=== PATIENT | male | born 1985 | race African-American/Black ===

== ENCOUNTER 2016-09-15 08:13 | Emergency (ER) | payer SELFPAY ==
[~2016-09-15] VITALS: Ht 177.8 cm; Wt 69.1 kg
[~2016-09-15 08:13] MED LIST: FLEXERIL10 MG PO; MOTRIN600 MG PO; MOTRIN800 MG PO; ULTRAM50 MG PO
[2016-09-15 08:16] VITALS: BP 148/74
== END 2016-09-15 08:59 | disposition home or self-care (01) ==
LOC: EME 08:13
DX: T16.2XXA Foreign body in left ear, initial encounter (principal)
CPT/HCPCS: 99281; 99284

== ENCOUNTER 2017-06-19 08:22 | Emergency (ER) | payer SELFPAY ==
[~2017-06-19] VITALS: Ht 180.3 cm; Wt 70.4 kg
[~2017-06-19 08:22] MED LIST changes: +NAPROXEN500 MG PO
[2017-06-19] MEDS ORDERED: FLEXERIL10 MG PO (09:34)
[2017-06-19] MEDS ORDERED: LIDODERM 5% P1 PATCH TD (09:34)
[2017-06-19] MEDS ORDERED: NAPROSYN500 MG PO (09:34)
[2017-06-19] MEDS ORDERED: TRAMADOL HCL50 MG PO (09:34)
[2017-06-19 10:10] VITALS: BP 151/91
== END 2017-06-19 10:11 | disposition home or self-care (01) ==
LOC: EME 08:22
DX: S39.012A Strain of muscle, fascia and tendon of lower back, initial encounter (principal); M62.830 Muscle spasm of back; X58.XXXA Exposure to other specified factors, initial encounter; Y99.0 Civilian activity done for income or pay; F17.200 Nicotine dependence, unspecified, uncomplicated; Z88.8 Allergy status to other drugs, medicaments and biological substances
CPT/HCPCS: 99281; 99284; J1885

== ENCOUNTER 2017-06-25 11:32 | Emergency (ER) | payer SELFPAY ==
[~2017-06-25] VITALS: Ht 180.3 cm; Wt 72.7 kg
[~2017-06-25 11:32] MED LIST changes: +LIDODERM 5% P1 PATCH TD; +NAPROSYN500 MG PO; +TRAMADOL HCL50 MG PO
[2017-06-25] MEDS ORDERED: LORTAB 10-3251 EACH PO (13:35)
[2017-06-25] MEDS ORDERED: VALIUM5 MG PO (13:35)
[2017-06-25 13:56] VITALS: BP 150/99
== END 2017-06-25 13:57 | disposition home or self-care (01) ==
LOC: EME 11:32
DX: S39.012A Strain of muscle, fascia and tendon of lower back, initial encounter (principal); M62.830 Muscle spasm of back; G89.29 Other chronic pain; X58.XXXA Exposure to other specified factors, initial encounter; F17.200 Nicotine dependence, unspecified, uncomplicated; Z88.5 Allergy status to narcotic agent; Z88.8 Allergy status to other drugs, medicaments and biological substances
CPT/HCPCS: 72100; 99281; 99284; J1100

== ENCOUNTER 2017-12-02 15:44 | Emergency (ER) | payer SELFPAY ==
[~2017-12-02] VITALS: Ht 177.8 cm; Wt 66.8 kg
[~2017-12-02 15:44] MED LIST changes: +LORTAB 10-3251 EACH PO; +VALIUM5 MG PO
[2017-12-02 16:16] LABS: HEMATOCRIT 42.1 % (38.0-50.0); MCH 33.5 PG (29.0-34.0); MCHC 35.6 G/DL (30.0-36.0); PLATELET COUNT 264 K/uL (156-360); RBC DIS.WIDTH-CV 12.1 % (11.8-14.6); RED BLOOD COUNT 4.48 M/uL (4.00-5.50); WHITE BLOOD COUNT 10.1 K/uL (4.1-10.2)
[2017-12-02 16:35] LABS: ALBUMIN 4.9 G/DL (3.2-4.8); CHLORIDE 104 MEQ/L (99-109); POTASSIUM 4.2 MEQ/L (3.7-5.4); SODIUM 139 MEQ/L (136-147); TOTAL BILIRUBIN 0.7 MG/DL (0.0-1.0)
[2017-12-02 16:40] LABS: ALKALINE PHOSPHATASE 33 IU/L (3-129); ALT (GPT) 18 IU/L (3-49); AST (GOT) 21 IU/L (2-34); CREATININE 0.9 MG/DL (0.6-1.3); GFR ESTIMATE (CALCULATED) > 59 mL/min/ (58.99-99999); GLUCOSE 87 mg/dL (70-99); TOTAL PROTEIN 7.8 G/DL (6.4-8.3); UREA NITROGEN (BUN) 16 mg/dL (9-23)
[2017-12-02 16:45] LABS: APPEARANCE CLEAR ((CLEAR)); BILIRUBIN NEGATIVE; BLOOD SMALL; COLOR YELLOW ((YELLOW)); GLUCOSE (STRIP) NEGATIVE; KETONES NEGATIVE; LEUKOCYTES NEGATIVE; NITRITE NEGATIVE; PROTEIN (STRIP) NEGATIVE; SPECIFIC GRAVITY 1.024 (1.000-1.030)
[2017-12-02 16:52] LABS: BACTERIA NONE SEEN /HPF; EPITHELIAL CELLS RARE /HPF; MUCUS TRACE /LPF; RED BLOOD CELLS 0-5 /HPF (0-5); UCUL ADDED? NO; WHITE BLOOD CELLS 0-5 /HPF (0-5)
[2017-12-02] MEDS ORDERED: ZOFRAN ODT4 MG PO (17:04)
[2017-12-02 17:49] VITALS: BP 144/92
== END 2017-12-02 17:50 | disposition home or self-care (01) ==
LOC: EME 15:44
DX: R11.2 Nausea with vomiting, unspecified (principal); F17.210 Nicotine dependence, cigarettes, uncomplicated; Z88.5 Allergy status to narcotic agent; Z88.8 Allergy status to other drugs, medicaments and biological substances
CPT/HCPCS: 80053; 81003; 85027; 99281; 99283